=== PATIENT | female | born 1995 | race Caucasian/White ===

== ENCOUNTER 2017-05-23 22:32 | Emergency (ER) | payer OTHER ==
[~2017-05-23] VITALS: Ht 160 cm; Wt 50.8 kg
[~2017-05-23 22:32] MED LIST: MOTRIN PO; PHENERGAN PO; TYLENOL #3 PO
[2017-05-23 23:19] LABS: URINE SOURCE CLEAN CATCH
[2017-05-23 23:21] LABS: URINE APPEARANCE CLEAR; URINE BILIRUBIN NEG (NEG); URINE BLOOD NEG (NEG); URINE COLOR YELLOW; URINE GLUCOSE NEG (NORM); URINE KETONE NEG (NEG); URINE LEUKOCYTE ESTERASE TRACE (NEG); URINE NITRATE NEG (NEG); URINE PROTEIN NEG (NEG); URINE SPECIFIC GRAVITY 1.015 (1.003-1.035); URINE UROBILINOGEN 0.2 MG/DL (NORM)
[2017-05-23 23:23] LABS: MICRO INDICATED? YES
[2017-05-23 23:25] LABS: CULTURE INDICATED? YES; URINE BACTERIA 1+ (NEG); URINE MUCUS PRESENT; URINE RBC NEG /[HPF] (0-2); URINE SQUAMOUS EPITHELIAL CELL OCCAS /[HPF]; URINE TRANSITIONAL EPI CELLS FEW /[HPF]
== END 2017-05-24 00:49 | disposition home or self-care (01) ==
LOC: SED 22:32
PROVIDERS: Emergency Medicine
DX: O20.0 Threatened abortion (principal); O99.511 Diseases of the respiratory system complicating pregnancy, first trimester; J45.909 Unspecified asthma, uncomplicated; O99.331 Smoking (tobacco) complicating pregnancy, first trimester; F17.210 Nicotine dependence, cigarettes, uncomplicated; Z98.890 Other specified postprocedural states; Z3A.01 Less than 8 weeks gestation of pregnancy
CPT/HCPCS: 36415; 81003; 84702; 86900; 86901; 87086; 99284

== ENCOUNTER 2017-06-19 21:02 | Emergency (ER) | payer OTHER ==
[~2017-06-19] VITALS: Ht 160 cm; Wt 50.8 kg
--- NOTE | ~2017-06-19 | CR116 ---
[facility]. [facility] A Service of [facility] & [facility] RADIOLOGY TEXT RESULTS PATIENT: ALEXANDRIA DE LA TORRE LOCATION: SED : [birth year] UNIT #: [id number] AGE: [address]: Julia Ellis APRN SEX: F ORDER DR: [id number] [address] [address] [id number] E MR#: [id number] Acc #: [id number] NAME: ALEXANDRIA DE LA TORRE : 1995 SEX: F STUDY DATE/TIME: 06/19/2017 22:50 UNIT: SED ROOM: STUDY DESCRIPTION: CR Finger 2 View Thumb Lt Attending Physician: Julia Ellis A.P.R.N. Ordering Physician: Julia Cottrell A.P.R.N. Primary Care Physician: [facility], [facility]. MEDICAL IMAGING REPORT This report is preliminary unless electronic signature is present. EXAM Left thumb, 06/19 at 22:15. INDICATIONS Laceration and pain after slamming in car door today. FINDINGS Three views of the left thumb were obtained. No fracture or malalignment is seen. There are no radiopaque foreign bodies. IMPRESSION Normal left thumb. Dictated by... Alberto Amador Jr., M.D. THIS IS AN ELECTRONICALLY VERIFIED REPORT Alberto Amador Jr., M.D. at 06/21/2017 9:09 PM SIDRA/bess TD: 06/21/2017 08:00 JOB #: [id number] MEDICAL IMAGING REPORT Page 1 of 1
== END 2017-06-19 22:59 | disposition home or self-care (01) ==
LOC: SED 21:02
DX: S60.012A Contusion of left thumb without damage to nail, initial encounter (principal); F17.210 Nicotine dependence, cigarettes, uncomplicated; W23.0XXA Caught, crushed, jammed, or pinched between moving objects, initial encounter; Y92.009 Unspecified place in unspecified non-institutional (private) residence as the place of occurrence of the external cause
CPT/HCPCS: 73140; 99283